=== PATIENT | male | born 1965 | race Caucasian/White ===

== ENCOUNTER 2016-11-13 16:42 | Emergency (ER) | payer OTHER ==
[2016-11-13 18:16] LABS: Hematocrit 38 % (42-52); Hemoglobin 12.7 g/dl (14.0-18.0); Mean Corpuscular HGB Conc 34 g/dl (31-36); Mean Corpuscular Hemoglobin 27 pg (27-31); Mean Corpuscular Volume 81 fL (80-94); Mean Platelet Volume 9 um3 (7.4-10.4); Red Blood Count 4.67 10^6/ul (4.0-5.4); Red Cell Distribution Width 15 % (10.5-15); White Blood Count 8.1 10^3/ul (3.5-10.8)
[2016-11-13 18:24] LABS: Urine Bacteria Absent (Absent); Urine Bilirubin Negative (Negative); Urine Glucose 3+(>=500 mg/dL) (Negative); Urine Nitrite Negative (Negative)
[2016-11-13 18:30] LABS: Albumin 2.3 g/dL (3.2-5.2); BUN/Creatinine Ratio 22.6 (8-20); C Reactive Protein 5.83 mg/L (< 5.00); Calcium 8.1 mg/dL (8.6-10.3); EGFR African American 73.5 (>60); EGFR Non-African American 57.1 (>60); Globulin 2.8 g/dL (2-4); Magnesium 2.1 mg/dL (1.9-2.7); Potassium 4.1 mmol/L (3.5-5.0); Total Bilirubin 0.2 mg/dL (0.2-1.0); Total Protein 5.1 g/dL (6.4-8.9)
[2016-11-13 18:32] LABS: Troponin I 0.01 ng/mL (<0.04)
[2016-11-13] MEDS ORDERED: oxyCODONE TAB* 5 MG TAB PO ONE (18:38)
--- NOTE | 2016-11-13 19:00 | RAD ---
INDICATION: Edema. COMPARISON: Comparison is made with a prior chest x-ray study from August 24, 2016. TECHNIQUE: A portable view of the chest was obtained. FINDINGS: Cardiac and mediastinal contours appear to be within normal limits. The lungs are clear. No pleural effusion is seen. IMPRESSION: NO EVIDENCE FOR ACUTE DISEASE.
[2016-11-13 19:07] LABS: TSH (Thyroid Stimulating Horm) 3.4 mcIU/mL (0.34-5.60)
--- NOTE | 2016-11-13 19:14 | RAD ---
INDICATION: Bilateral pedal edema. COMPARISON: Comparison is made with a prior right lower extremity venous duplex study from July 28, 2016. TECHNIQUE: Multiple real-time, color flow and Doppler tracings of both lower extremities were obtained. FINDINGS: The common femoral, femoral, profunda femoral and popliteal veins all demonstrate normal compressibility, augmentation with compression and phasic response with respiration. The posterior tibial and peroneal veins demonstrate normal compressibility and augmentation with compression. There is a Rogers's cyst present posterior to the right knee measuring 4.9 x 1.9 x 2.8 cm which is complex. There is bilateral calf edema. IMPRESSION: 1. NO EVIDENCE FOR DEEP VENOUS THROMBOSIS. 2. RIGHT LOWER EXTREMITY ROGERS'S CYST.
--- NOTE | 2016-11-13 21:30 | ED ---
ISean Soohyun, scribed for Sohail Mabry MD on 11/13/16 at 1742 . Complex/Multi-Sys Presentation - HPI Summary HPI Summary: This 51 y/o male presents to ED for acute on chronic diffuse edema throughout BLE, penis, scrotum, and lower abd. Pt reports abd discomfort. [facility] He also complaints of exertional SOB. The swelling has been gradually increasing to BLE upto lower abd since then. Pt states that he is currently on lisinopril and hydrochlorothiazide. Pt also states vague statement that he has seen his PCP. PMHx includes HTN, DM, and diabetic neuropathy at [facility]. - History Of Current Complaint Chief Complaint: EDGeneral Time Seen by Provider: 11/13/16 17:22 Hx Obtained From: Patient, Medical Records Onset/Duration: Gradual Onset, Lasting Weeks, Still Present Timing: Constant Severity Currently: Mild Severity Initially: Moderate Associated Signs And Symptoms: Positive: SOB - exertional - Allergies/Home Medications Allergies/Adverse Reactions: Allergies Allergy/AdvReac Type Severity Reaction Status Date / Time No Known Allergies Allergy Verified 04/24/16 15:02 PMH/Surg Hx/FS Hx/Imm Hx Endocrine/Hematology History: Reports: Hx Diabetes - NOT WELL CONTROLLED Denies: Hx Sickle Cell Disease Cardiovascular History: Reports: Hx Hypercholesterolemia, Hx Hypertension, Hx Peripheral Vascular Disease Denies: Hx Congestive Heart Failure, Hx Pacemaker/ICD Respiratory History: Reports: Hx Sleep Apnea Denies: Hx Asthma, Other Respiratory Problems/Disorders GI History: Reports: Hx Gastroesophageal Reflux Disease - Takes Prilosec History: Denies: Hx Dialysis, Hx Renal Disease, Other Problems/Disorders Musculoskeletal History: Reports: Hx Arthritis - KNEES AND ANKLES, RIGHT HAND Denies: Other Musculoskeletal History Sensory History: Reports: Hx Contacts or Glasses - GLASSES Denies: Hx Hearing Aid Opthamlomology History: Reports: Hx Contacts or Glasses - GLASSES Neurological History: Reports: Hx Nerve Disease - Diabetic neuropathy bilat legs /feet, Other Neuro Impairments/Disorders - diabetic neuropathy bilat legs Psychiatric History: Reports: Hx Anxiety, Hx Depression Denies: Hx Panic Disorder - Surgical History Surgery Procedure, Year, and Place: LEFT ANKLE SURGERY 1994 [place]. RT CALF - INFECTION - I & D - 2004 [place]. APPENDECTOMY 2009 [facility] [place]. Left foot surgery FOR ULCER ( REMOVED BONE) [facility] [place] 2012. RIGHT HAND I+D 09/2013 [facility] [place] Hx Anesthesia Reactions: No Infectious Disease History: Yes Infectious Disease History: Reports: Hx of Known/Suspected MRSA - in bilat feet Denies: Traveled Outside the US in Last 30 Days - Family History Known Family History: Positive: Diabetes - Social History Alcohol Use: None Alcohol Amount: A COUPLE BEERS ONCE IN AWHILE Substance Use Type: Reports: None Substance Use Comment - Amount & Last Used: OCCASIONAL Smoking Status (MU): Heavy Every Day Tobacco Smoker Type: Cigarettes Amount Used/How Often: 1 PPD Length of Time of Smoking/Using Tobacco: 30 YRS Have You Smoked in the Last Year: Yes Review of Systems Negative: Fever Positive: Shortness Of Breath - exertional Positive: Edema - BLE, penis, and lower abd Negative: Anxious, Depressed All Other Systems Reviewed And Are Negative: Yes Physical Exam Triage Information Reviewed: Yes Vital Signs On Initial Exam: Initial Vitals Temp Pulse Resp BP Pulse Ox 97.7 F 80 16 164/99 99 11/13/16 16:47 11/13/16 16:47 11/13/16 16:47 11/13/16 16:47 11/13/16 16:47 Vital Signs Reviewed: Yes Appearance: Positive: Well-Appearing, No Pain Distress, Obese Skin: Positive: Warm, Dry Head/Face: Positive: Normal Head/Face Inspection Eyes: Positive: EOMI, UMA Neck: Positive: Supple, Nontender Respiratory/Lung Sounds: Positive: Breath Sounds Present Cardiovascular: Positive: RRR, Pulses are Symmetrical in both Upper and Lower Extremities Abdomen Description: Positive: Other: - lower abd edematous Male Genital Exam: Positive: other - edematous scrotum bilat and lower abd Musculoskeletal: Positive: Strength/ROM Intact, Edema Left - 4+, Edema Right - 4 + pitting edema Neurological: Positive: Sensory/Motor Intact, Alert, Oriented to Person Place, Time Psychiatric: Positive: Affect/Mood Appropriate AVPU Assessment: Alert - Gilman Coma Scale Coma Scale Total: 15 Diagnostics - Vital Signs Vital Signs Temp Pulse Resp BP Pulse Ox 11/13/16 17:00 82 16 100 11/13/16 16:56 81 99 11/13/16 16:55 172/89 11/13/16 16:47 97.7 F 80 16 164/99 99 - Laboratory Lab Results: Lab Results 11/13/16 11/13/16 11/13/16 Range/Units 18:00 18:00 18:00 WBC 8.1 (3.5-10.8) 10^3/ul RBC 4.67 (4.0-5.4) 10^6/ul Hgb 12.7 L (14.0-18.0) g/dl Hct 38 L (42-52) % MCV 81 (80-94) fL MCH 27 (27-31) pg MCHC 34 (31-36) g/dl RDW 15 (10.5-15) % Plt Count 280 (150-450) 10^3/ul MPV 9 (7.4-10.4) um3 Neut % (Auto) 54.1 (38-83) % Lymph % (Auto) 31.8 (25-47) % [place] % (Auto) 9.3 H (1-9) % Eos % (Auto) 3.5 (0-6) % Baso % (Auto) 1.3 (0-2) % Absolute Neuts (auto) 4.4 (1.5-7.7) 10^3/ul Absolute Lymphs (auto) 2.6 (1.0-4.8) 10^3/ul Absolute Monos (auto) 0.8 (0-0.8) 10^3/ul Absolute Eos (auto) 0.3 (0-0.6) 10^3/ul Absolute Basos (auto) 0.1 (0-0.2) 10^3/ul Absolute Nucleated RBC 0 10^3/ul Nucleated RBC % 0 INR (Anticoag Therapy) 0.81 L (0.89-1.11) APTT 32.7 (26.0-36.3) seconds Sodium (133-145) mmol/L Potassium (3.5-5.0) mmol/L Chloride (101-111) mmol/L Carbon Dioxide (22-32) mmol/L Anion Gap (2-11) mmol/L BUN (6-24) mg/dL Creatinine (0.67-1.17) mg/dL Est GFR ( Amer) (>60) Est GFR (Non-Af Amer) (>60) BUN/Creatinine Ratio (8-20) Glucose (70-100) mg/dL Lactic Acid (0.5-2.0) mmol/L Calcium (8.6-10.3) mg/dL Magnesium (1.9-2.7) mg/dL Total Bilirubin (0.2-1.0) mg/dL AST (13-39) U/L ALT (7-52) U/L Alkaline Phosphatase (34-104) U/L Total Creatine Kinase (10-223) U/L CK-MB (CK-2) (0.6-6.3) ng/mL Troponin I (<0.04) ng/mL C-Reactive Protein (< 5.00) mg/L B-Natriuretic Peptide ( - 100) pg/mL Total Protein (6.4-8.9) g/dL Albumin (3.2-5.2) g/dL Globulin (2-4) g/dL Albumin/Globulin Ratio (1-3) Lipase (11.0-82.0) U/L TSH (0.34-5.60) mcIU/mL Urine Color Yellow Urine Appearance Clear Urine pH 6.0 (5-9) Ur Specific [place] 1.020 (1.010-1.030) Urine Protein 3+(>=500 mg/dl) H (Negative) Urine Ketones Negative (Negative) Urine Blood 1+ H (Negative) Urine Nitrate Negative (Negative) Urine Bilirubin Negative (Negative) Urine Urobilinogen Negative (Negative) Ur Leukocyte Esterase Negative (Negative) Urine WBC (Auto) Trace(0-5/hpf) (Absent) Urine RBC (Auto) 1+(3-5/hpf) H (Absent) Ur Squamous Epith Cells Present H (Absent) Urine Bacteria Absent (Absent) Urine Glucose 3+(>=500 mg/dl) H (Negative) 11/13/16 11/13/16 11/13/16 Range/Units 18:00 18:00 18:00 WBC (3.5-10.8) 10^3/ul RBC (4.0-5.4) 10^6/ul Hgb (14.0-18.0) g/dl Hct (42-52) % MCV (80-94) fL MCH (27-31) pg MCHC (31-36) g/dl RDW (10.5-15) % Plt Count (150-450) 10^3/ul MPV (7.4-10.4) um3 Neut % (Auto) (38-83) % Lymph % (Auto) (25-47) % [place] % (Auto) (1-9) % Eos % (Auto) (0-6) % Baso % (Auto) (0-2) % Absolute Neuts (auto) (1.5-7.7) 10^3/ul Absolute Lymphs (auto) (1.0-4.8) 10^3/ul Absolute Monos (auto) (0-0.8) 10^3/ul Absolute Eos (auto) (0-0.6) 10^3/ul Absolute Basos (auto) (0-0.2) 10^3/ul Absolute Nucleated RBC 10^3/ul Nucleated RBC % INR (Anticoag Therapy) (0.89-1.11) APTT (26.0-36.3) seconds Sodium 135 (133-145) mmol/L Potassium 4.1 (3.5-5.0) mmol/L Chloride 110 (101-111) mmol/L Carbon Dioxide 23 (22-32) mmol/L Anion Gap 2 (2-11) mmol/L BUN 30 H (6-24) mg/dL Creatinine 1.33 H (0.67-1.17) mg/dL Est GFR ( Amer) 73.5 (>60) Est GFR (Non-Af Amer) 57.1 (>60) BUN/Creatinine Ratio 22.6 H (8-20) Glucose 124 H (70-100) mg/dL Lactic Acid 0.8 (0.5-2.0) mmol/L Calcium 8.1 L (8.6-10.3) mg/dL Magnesium 2.1 (1.9-2.7) mg/dL Total Bilirubin 0.20 (0.2-1.0) mg/dL AST 48 H (13-39) U/L ALT 35 (7-52) U/L Alkaline Phosphatase 128 H (34-104) U/L Total Creatine Kinase 1288 H (10-223) U/L CK-MB (CK-2) 16.8 H (0.6-6.3) ng/mL Troponin I 0.01 (<0.04) ng/mL C-Reactive Protein 5.83 H (< 5.00) mg/L B-Natriuretic Peptide 54 ( - 100) pg/mL Total Protein 5.1 L (6.4-8.9) g/dL Albumin 2.3 L (3.2-5.2) g/dL Globulin 2.8 (2-4) g/dL Albumin/Globulin Ratio 0.8 L (1-3) Lipase 25 (11.0-82.0) U/L TSH 3.40 (0.34-5.60) mcIU/mL Urine Color Urine Appearance Urine pH (5-9) Ur Specific [place] (1.010-1.030) Urine Protein (Negative) Urine Ketones (Negative) Urine Blood (Negative) Urine Nitrate (Negative) Urine Bilirubin (Negative) Urine Urobilinogen (Negative) Ur Leukocyte Esterase (Negative) Urine WBC (Auto) (Absent) Urine RBC (Auto) (Absent) Ur Squamous Epith Cells (Absent) Urine Bacteria (Absent) Urine Glucose (Negative) Result Diagrams: 11/13/16 18:00 11/13/16 18:00 Lab Statement: Any lab studies that have been ordered have been reviewed, and results considered in the medical decision making process. - Radiology CXR Xray Interpretation: No Acute Changes Radiology Interpretation Completed By: Radiologist - EKG 1811 EKG Rhythm: Atrial Flutter - at 73 bpm with 4:1 AV block - Additional Comments Diagnostic Additional Comments: US Venous Doppler Study -- 1. NO EVIDENCE FOR DEEP VENOUS THROMBOSIS. 2. RIGHT LOWER EXTREMITY DIAZ'S CYST. Complex Multi-Symp Course/Dx Assessment/Plan: DISCUSSED WITH DR PHILLIPS. NO ECHOCARDIOGRAM ON FILE. BNP AND CXR DID NOT SHOW SIGNS OF CHF. PATIENT REPORTS HE HAS BEEN ON 2 DIFFERENT DIURETICS WHICH HAVE NOT HELPED. CT OF ABD/PELVIS PENDING AT SHIFT CHANGE TO ENSURE NO MASS/VENOUS CAUSE FOR THE EDEMA IN THE ABDOMEN/PELVIS. STABLE IN ED. - Diagnoses Provider Diagnoses: Edema - Physician Notifications Discussed Care Of Patient With: Dr. Phillips (Hospitalist) at 1958 PM Discharge - Discharge Plan Condition: Stable Disposition: HOME Patient Education Materials: Edema (ED) Referrals: Lukas SEALS,Juan Saab [Primary Care Provider] - Additional Instructions: FOLLOW UP WITH YOUR DOCTOR. TO DETERMINE THE CAUSE OF YOUR EDEMA, A CARDIAC ECHOCARDIOGRAM IS NEEDED TO DETERMINE IF YOUR HEART HAS AN ADEQUATE EJECTION FRACTION. IF THE ECHOCARDIOGRAM IS ABNORMAL, YOU MAY NEED TO SEE A TUBER MACHINE CUTTER. IF THE ECHOCARDIOGRAM IS NORMAL, THEN YOU WILL NEED TO SEE A VENOUS SPECIALIST, A VASCULAR SURGEON. RETURN TO THE EMERGENCY DEPARTMENT FOR ANY WORSENING OF YOUR CONDITION; CHEST PAIN, SHORTNESS OF BREATH, YOU FEEL ILL OR QUESTIONS OR CONCERNS. The documentation as recorded by the Sean diaz Soohyun accurately reflects the service I personally performed and the decisions made by me, Sohail Mabry MD.
[2016-11-13 23:44] VITALS: BP 162/94
[2016-11-14] MEDS ORDERED: Iodixanol* (CONTRAST) 320 MG/ML 100 ML SDV IV ONE (00:05)
--- NOTE | 2016-11-14 00:36 | ED ---
tracee Dave Timothy, nancie for Adam Boles on 11/13/16 at 2318 . Progress - Progress Note Progress Note: Oscar Felton is a 51 yo male presenting to [facility] with diffuse bilateral edema. His MHx includes peripheral vacular disease, HLD, HTN, diabetic neuropathy bilaterally in legs and feet, GERD, DM, depression, anxiety, MRSA bilaterally in his feet. He is a sign out from Dr. Mabry. Course/Dx - Course Course Of Treatment: Oscar Felton is a 51 yo male presenting to [facility] with diffuse bilateral edema. Pt left AMA at 0000 11/15/15. - Diagnoses Provider Diagnoses: Edema, Pedal edema - Provider Notifications Discussed Care Of Patient With: Dr. Phillips (Hospitalist) at 1958 PM The documentation as recorded by the markellibetracee Timothy accurately reflects the service I personally performed and the decisions made by , Adam Boles.
== END 2016-11-13 23:48 | disposition home or self-care (01) ==
LOC: ED 16:42
DX: M71.21 Synovial cyst of popliteal space [Baker], right knee (principal); R60.9 Edema, unspecified; R06.02 Shortness of breath; F17.210 Nicotine dependence, cigarettes, uncomplicated
CPT/HCPCS: 36415; 71010; 80053; 81003; 81015; 82550; 82553; 83605; 83690; 83735; 83880; 84443; 84484; 85025; 85610; 85730; 86140; 93005; 93970; 99283; A9270-GY

== ENCOUNTER 2016-12-11 19:04 | Inpatient (IN) | payer OTHER ==
--- NOTE | 2016-12-11 19:43 | RAD ---
INDICATION: Shortness of breath. COMPARISON: Comparison is made with a prior chest x-ray study from November 13, 2016. TECHNIQUE: Dual-energy PA and lateral views of the chest were obtained. FINDINGS: The heart is within normal limits in size. Mediastinal and hilar contours appear within normal limits. The lungs are underinflated. There is mild prominence of the interstitial markings which is unchanged. No focal infiltrate is seen. There is flattening of the diaphragms suggestive of chronic obstructive pulmonary disease. No pleural effusion is seen. IMPRESSION: FINDINGS SUGGESTIVE OF COPD, NO EVIDENCE FOR ACUTE FINDING.
[2016-12-11 20:29] LABS: Hematocrit 32 % (42-52); Hemoglobin 10.6 g/dl (14.0-18.0); Mean Corpuscular HGB Conc 33 g/dl (31-36); Mean Corpuscular Hemoglobin 27 pg (27-31); Mean Corpuscular Volume 81 fL (80-94); Mean Platelet Volume 9 um3 (7.4-10.4); Red Blood Count 3.98 10^6/ul (4.0-5.4); Red Cell Distribution Width 15 % (10.5-15); White Blood Count 7.8 10^3/ul (3.5-10.8)
[2016-12-11 20:43] LABS: ALT 18 U/L (7-52); AST 20 U/L (13-39); Albumin 2.1 g/dL (3.2-5.2); Alkaline Phosphatase 158 U/L (34-104); Anion Gap 5 mmol/L (2-11); BUN/Creatinine Ratio 16.6 (8-20); Blood Urea Nitrogen 26 mg/dL (6-24); CO2 Carbon Dioxide 28 mmol/L (22-32); Calcium 7.5 mg/dL (8.6-10.3); Chloride 109 mmol/L (101-111); EGFR African American 60.7 (>60); EGFR Non-African American 47.2 (>60); Globulin 2.6 g/dL (2-4); Glucose 218 mg/dL (70-100); Potassium 3.9 mmol/L (3.5-5.0); Sodium 142 mmol/L (133-145); Total Protein 4.7 g/dL (6.4-8.9)
[2016-12-11 20:44] LABS: Troponin I 0.01 ng/mL (<0.04)
[2016-12-11] MEDS ORDERED: HYDROmorphone* 1 MG/ML 1 ML SYR IV ONE (21:56)
--- NOTE | 2016-12-11 22:24 | ED ---
Jolie, DoctorSteffany, scribed for Irene Branham MD on 12/11/16 at 1932 . Lower Extremity - HPI Summary HPI Summary: 51 year old male brought to [facility] by EMS with SOB, chills, and bilateral lower extremity edema. He reports swelling and redness all the way up his legs to the lower back, that has been steadily increasing since 07/2016. He also reports gaining approximately 100 lbs since that time. He has PMHx and FHx of DM; pt is a heavy every day smoker. - History of Current Complaint Chief Complaint: EDShortnessOfBreath Stated Complaint: SHORT OF BREATH Hx Obtained From: Patient, EMS Onset of Pain: Days Onset/Duration: Still Present Pain Intensity: 9 Pain Scale Used: 0-10 Numeric Timing: Constant Associated Signs And Symptoms: Positive: Swelling, Redness, Other - chills, SOB Able to Bear Weight: Yes - Allergies/Home Medications Allergies/Adverse Reactions: Allergies Allergy/AdvReac Type Severity Reaction Status Date / Time No Known Allergies Allergy Verified 04/24/16 15:02 PMH/Surg Hx/FS Hx/Imm Hx Endocrine/Hematology History: Reports: Hx Diabetes - NOT WELL CONTROLLED Denies: Hx Sickle Cell Disease Cardiovascular History: Reports: Hx Hypercholesterolemia, Hx Hypertension, Hx Peripheral Vascular Disease Denies: Hx Congestive Heart Failure, Hx Pacemaker/ICD Respiratory History: Reports: Hx Sleep Apnea Denies: Hx Asthma, Other Respiratory Problems/Disorders GI History: Reports: Hx Gastroesophageal Reflux Disease - Takes Prilosec History: Denies: Hx Dialysis, Hx Renal Disease, Other Problems/Disorders Musculoskeletal History: Reports: Hx Arthritis - KNEES AND ANKLES, RIGHT HAND Denies: Other Musculoskeletal History Sensory History: Reports: Hx Contacts or Glasses - GLASSES Denies: Hx Hearing Aid Opthamlomology History: Reports: Hx Contacts or Glasses - GLASSES Neurological History: Reports: Hx Nerve Disease - Diabetic neuropathy bilat legs /feet, Other Neuro Impairments/Disorders - diabetic neuropathy bilat legs Psychiatric History: Reports: Hx Anxiety, Hx Depression Denies: Hx Panic Disorder - Surgical History Surgery Procedure, Year, and Place: LEFT ANKLE SURGERY 1994 [place]. RT CALF - INFECTION - I & D - 2004 [place]. [place]OM[place] 2009 [facility] [place]. Left foot surgery FOR ULCER ( REMOVED BONE) [facility] [place]. RIGHT HAND I+D 09/2013 [facility] [place] Hx Anesthesia Reactions: No Infectious Disease History: Reports: Hx of Known/Suspected MRSA - in bilat feet Denies: Traveled Outside the [place] in Last 30 Days - Family History Known Family History: Positive: Diabetes - Social History Lives: With Family Alcohol Use: None Alcohol Amount: A COUPLE BEERS ONCE IN AWHILE Substance Use Type: Reports: None Substance Use Comment - Amount & Last Used: OCCASIONAL Smoking Status (MU): Heavy Every Day Tobacco Smoker Type: Cigarettes Amount Used/How Often: 1 PPD Length of Time of Smoking/Using Tobacco: 30 YRS Have You Smoked in the Last Year: Yes Review of Systems Positive: Chills. Negative: Fever Positive: Shortness Of Breath Positive: Edema - bilateral lower extremity & lower back edema Positive: Other - bilateral lower extremity & lower back erythema All Other Systems Reviewed And Are Negative: Yes Physical Exam Triage Information Reviewed: Yes Vital Signs On Initial Exam: Initial Vitals Temp Pulse Resp BP Pulse Ox 98.8 F 89 20 150/79 95 12/11/16 19:18 12/11/16 19:18 12/11/16 19:18 12/11/16 19:18 12/11/16 19:18 Vital Signs Reviewed: Yes Appearance: Positive: Well-Appearing, No Pain Distress Skin: Positive: Warm, Dry, Other - erythema (bilateral lower extremities and lower back) Eyes: Positive: EOMI, UMA ENT: Positive: Pharynx normal, TMs normal Neck: Positive: Supple, Nontender Respiratory/Lung Sounds: Positive: Clear to Auscultation, Breath Sounds Present. Negative: Rales, Rhonchi, Wheezes Cardiovascular: Positive: RRR, Leg Edema Left - 3+ edema up to lower back, Leg Edema Right - 3+ edema up to lower back. Negative: Murmur, Rub Abdomen Description: Positive: Nontender, Soft. Negative: Distended, Guarding Musculoskeletal: Positive: Strength/ROM Intact, Edema Left, Edema Right Neurological: Positive: Sensory/Motor Intact, Alert, Oriented to Person Place, Time, CN Intact II-III Psychiatric: Positive: Affect/Mood Appropriate Diagnostics - Vital Signs Vital Signs Temp Pulse Resp BP Pulse Ox 12/11/16 19:21 98.8 F 91 20 150/79 97 12/11/16 19:18 98.8 F 89 20 150/79 95 - Laboratory Lab Results: Lab Results 12/11/16 12/11/16 12/11/16 Range/Units 20:16 20:16 20:16 WBC 7.8 (3.5-10.8) 10^3/ul RBC 3.98 L (4.0-5.4) 10^6/ul Hgb 10.6 L (14.0-18.0) g/dl Hct 32 L (42-52) % MCV 81 (80-94) fL MCH 27 (27-31) pg MCHC 33 (31-36) g/dl RDW 15 (10.5-15) % Plt Count 251 (150-450) 10^3/ul MPV 9 (7.4-10.4) um3 Neut % (Auto) 55.8 (38-83) % Lymph % (Auto) 29.6 (25-47) % [place] % (Auto) 9.9 H (1-9) % Eos % (Auto) 3.3 (0-6) % Baso % (Auto) 1.4 (0-2) % Absolute Neuts (auto) 4.3 (1.5-7.7) 10^3/ul Absolute Lymphs (auto) 2.3 (1.0-4.8) 10^3/ul Absolute Monos (auto) 0.8 (0-0.8) 10^3/ul Absolute Eos (auto) 0.3 (0-0.6) 10^3/ul Absolute Basos (auto) 0.1 (0-0.2) 10^3/ul Absolute Nucleated RBC 0 10^3/ul Nucleated RBC % 0 Sodium 142 (133-145) mmol/L Potassium 3.9 (3.5-5.0) mmol/L Chloride 109 (101-111) mmol/L Carbon Dioxide 28 (22-32) mmol/L Anion Gap 5 (2-11) mmol/L BUN 26 H (6-24) mg/dL Creatinine 1.57 H (0.67-1.17) mg/dL Est GFR ( Amer) 60.7 (>60) Est GFR (Non-Af Amer) 47.2 (>60) BUN/Creatinine Ratio 16.6 (8-20) Glucose 218 H (70-100) mg/dL Lactic Acid 0.9 (0.5-2.0) mmol/L Calcium 7.5 L (8.6-10.3) mg/dL Total Bilirubin 0.20 (0.2-1.0) mg/dL AST 20 (13-39) U/L ALT 18 (7-52) U/L Alkaline Phosphatase 158 H (34-104) U/L Troponin I 0.01 (<0.04) ng/mL B-Natriuretic Peptide ( - 100) pg/mL Total Protein 4.7 L (6.4-8.9) g/dL Albumin 2.1 L (3.2-5.2) g/dL Globulin 2.6 (2-4) g/dL Albumin/Globulin Ratio 0.8 L (1-3) 12/11/16 Range/Units 20:16 WBC (3.5-10.8) 10^3/ul RBC (4.0-5.4) 10^6/ul Hgb (14.0-18.0) g/dl Hct (42-52) % MCV (80-94) fL MCH (27-31) pg MCHC (31-36) g/dl RDW (10.5-15) % Plt Count (150-450) 10^3/ul MPV (7.4-10.4) um3 Neut % (Auto) (38-83) % Lymph % (Auto) (25-47) % [place] % (Auto) (1-9) % Eos % (Auto) (0-6) % Baso % (Auto) (0-2) % Absolute Neuts (auto) (1.5-7.7) 10^3/ul Absolute Lymphs (auto) (1.0-4.8) 10^3/ul Absolute Monos (auto) (0-0.8) 10^3/ul Absolute Eos (auto) (0-0.6) 10^3/ul Absolute Basos (auto) (0-0.2) 10^3/ul Absolute Nucleated RBC 10^3/ul Nucleated RBC % Sodium (133-145) mmol/L Potassium (3.5-5.0) mmol/L Chloride (101-111) mmol/L Carbon Dioxide (22-32) mmol/L Anion Gap (2-11) mmol/L BUN (6-24) mg/dL Creatinine (0.67-1.17) mg/dL Est GFR ( Amer) (>60) Est GFR (Non-Af Amer) (>60) BUN/Creatinine Ratio (8-20) Glucose (70-100) mg/dL Lactic Acid (0.5-2.0) mmol/L Calcium (8.6-10.3) mg/dL Total Bilirubin (0.2-1.0) mg/dL AST (13-39) U/L ALT (7-52) U/L Alkaline Phosphatase (34-104) U/L Troponin I (<0.04) ng/mL B-Natriuretic Peptide 78 ( - 100) pg/mL Total Protein (6.4-8.9) g/dL Albumin (3.2-5.2) g/dL Globulin (2-4) g/dL Albumin/Globulin Ratio (1-3) Result Diagrams: 12/11/16 20:16 12/11/16 20:16 Lab Statement: Any lab studies that have been ordered have been reviewed, and results considered in the medical decision making process. - Radiology CXR Radiology Interpretation Completed By: Radiologist - IMPRESSION: FINDINGS SUGGESTIVE OF COPD, NO EVIDENCE FOR ACUTE FINDING. - EKG 19:39 Cardiac Rate: NL - 90 bpm EKG Rhythm: Sinus Rhythm Ectopy: None EKG Interpretation: no Qs, no ST Elevation EKG Comparison: No Significant Change - from EKG taken on 11/13/2016 Re-Evaluation - Re-Evaluation First Eval Re-Evaluation Time: 21:32 Change: Unchanged Comment: Discussed results of labs and potential treatment options with pt Lower Extremity Course/Dx - Course Course Of Treatment: 51 yo male with 5 months of anasarca come to the ED with increased fluid over abdominal wall. Pt is awaiting a consult by the hospitalists. Of note his genitalia are swollen with erythema but he has no signs of infection. We are currently awaiting a urine for the hospitalist to look at a random urine protein and creatinine - Diagnoses Provider Diagnoses: Anasarca Discharge - Discharge Plan Condition: Stable Disposition: OTHER Discharge Disposition Comment: signed out to Dr. randolph The documentation as recorded by the Doctor diaz Tahera accurately reflects the service I personally performed and the decisions made by me, Irene Branham MD.
[2016-12-12 01:15] LABS: Alcohol < 10 mg/dL (<10)
[2016-12-12 01:16] LABS: Benzodiazepine Urine Screen None Detected (None Detect)
[2016-12-12 01:41] LABS: Free T4 0.88 ng/dL (0.61-1.12)
[2016-12-12] MEDS ORDERED: oxyCODONE/Acetamin 5/325 MG* TAB PO ONE (07:29)
--- NOTE | 2016-12-12 07:39 | CONSULT ---
Consult Consult: PCP: Sol Gaytan MD Date/Time of Evaluation: 12/11/2016 2330 CC: swelling BLE into the low back HPI: Mr Felton is a 51YO obese male HX DM2, HLD, & GERD who reports onset of worsening BLE edema extending into the low back & B testes starting in Jul 2016. He has seen his PCP who referred him to cardiology & urology. This has been associated with progressive fatigue and some SOB, but he denies chest pain , N/V, palpitations, HX CAD/SD, light-headedness, or other issues. Labs are notable for a BNP in the 70s, albumin 2.1. ECG is benign. CXR consistent w/ COPD, otherwise negative. Vitals are stable, hypertensive w/ RA saO2s in the mid-90s. Consult was requested for admission for failed outpatient management. PMedHx DM2 HLD CKD stg 3a chronic normocystic anemia gout GERD Allergies No Known Allergies Allergy (Verified 04/24/16 15:02) Ambulatory Orders Insulin Glargine [Lantus] 50 unit SC BID 05/27/13 Metformin HCl 1,000 mg PO BID 05/27/13 Glimepiride 4 mg PO BID 09/03/13 Atorvastatin* [Lipitor*] 80 mg PO QAM 09/02/15 Pantoprazole TAB (NF) [Protonix TAB (NF)] 40 mg PO QAM 09/02/15 Zolpidem TAB* [Ambien TAB*] 10 mg PO BEDTIME PRN 03/27/16 Aspirin TAB* [Aspirin 325 MG TAB*] 325 mg PO BEDTIME 30 Days 04/03/16 Docusate CAP* [Colace Cap*] 100 mg PO BID #60 cap 04/03/16 oxyCODONE TAB* [Roxycodone TAB 5 mg*] 15 mg PO Q6HR MDD 6 08/24/16 SocHx: 1PPD cigarettes w/ ~30 PYHX, occasional alcohol, denies recreational drugs; single; full code status FamHx: positive for HTN, HLD, DM2, CAD, & unknown cancer type ROS: as above, otherwise reviewed and all were negative Constitutional: NAD, normally developed, obese white male vitals: Vital Signs Temp 37.1 C 12/11/16 19:21 Pulse 85 12/12/16 01:00 Resp 18 12/12/16 00:30 BP 141/79 12/12/16 01:00 Pulse Ox 94 12/12/16 01:00 Intake & Output 12/11/16 12/11/16 12/12/16 11:59 23:59 11:59 Weight 104.326 kg HEENM: atraumatic; sclera/conjunctiva: non-icteric/clear; hearing: clinically intact; oropharynx: clear, mucosa moist Neck: soft tissue: non-tender; thyroid: normal Pulmonary: clear to auscultation bilaterally, good aeration, no accessory muscle use CV: RR/RR, normal S1S2, no carotid bruit, no jugular venous distention, 2+ B DP/ PT, 2+ BLE edema up to the sacrum Abdominal: soft, non-distended, non-tender, no rebound/guarding/rigidity, normoactive bowel sounds, no hepatosplenomegaly or masses, no costovertebral angle tenderness Musculoskeletal: general: grossly intact; gait: stable Integumental: normal appearance and texture of exposed skin Psychiatric orientation: AA&O to PPS affect: calm mood: cooperative eye contact: fair content: reliable responses: timely insight: fair to poor Testing: Lab Results 12/11/16 12/11/16 12/11/16 Range/Units 20:16 20:16 20:16 WBC 7.8 (3.5-10.8) 10^3/ul RBC 3.98 L (4.0-5.4) 10^6/ul Hgb 10.6 L (14.0-18.0) g/dl Hct 32 L (42-52) % MCV 81 (80-94) fL MCH 27 (27-31) pg MCHC 33 (31-36) g/dl RDW 15 (10.5-15) % Plt Count 251 (150-450) 10^3/ul MPV 9 (7.4-10.4) um3 Neut % (Auto) 55.8 (38-83) % Lymph % (Auto) 29.6 (25-47) % [place] % (Auto) 9.9 H (1-9) % Eos % (Auto) 3.3 (0-6) % Baso % (Auto) 1.4 (0-2) % Absolute Neuts (auto) 4.3 (1.5-7.7) 10^3/ul Absolute Lymphs (auto) 2.3 (1.0-4.8) 10^3/ul Absolute Monos (auto) 0.8 (0-0.8) 10^3/ul Absolute Eos (auto) 0.3 (0-0.6) 10^3/ul Absolute Basos (auto) 0.1 (0-0.2) 10^3/ul Absolute Nucleated RBC 0 10^3/ul Nucleated RBC % 0 Sodium 142 (133-145) mmol/L Potassium 3.9 (3.5-5.0) mmol/L Chloride 109 (101-111) mmol/L Carbon Dioxide 28 (22-32) mmol/L Anion Gap 5 (2-11) mmol/L BUN 26 H (6-24) mg/dL Creatinine 1.57 H (0.67-1.17) mg/dL Est GFR ( Amer) 60.7 (>60) Est GFR (Non-Af Amer) 47.2 (>60) BUN/Creatinine Ratio 16.6 (8-20) Glucose 218 H (70-100) mg/dL Lactic Acid 0.9 (0.5-2.0) mmol/L Calcium 7.5 L (8.6-10.3) mg/dL Total Bilirubin 0.20 (0.2-1.0) mg/dL AST 20 (13-39) U/L ALT 18 (7-52) U/L Alkaline Phosphatase 158 H (34-104) U/L Troponin I 0.01 (<0.04) ng/mL B-Natriuretic Peptide ( - 100) pg/mL Total Protein 4.7 L (6.4-8.9) g/dL Albumin 2.1 L (3.2-5.2) g/dL Globulin 2.6 (2-4) g/dL Albumin/Globulin Ratio 0.8 L (1-3) TSH 3.60 (0.34-5.60) mcIU/mL Free T4 0.88 (0.61-1.12) ng/dL Thyroxine (T4) Cancelled Ur Random Creatinine mg/dL U Random Total Protein mg/dL Urine Opiates Screen (None Detect) Ur Barbiturates Screen (None Detect) Ur Phencyclidine Scrn (None Detect) Ur Amphetamines Screen (None Detect) U Benzodiazepines Scrn (None Detect) Urine Cocaine Screen (None Detect) U Cannabinoids Screen (None Detect) Serum Alcohol < 10 (<10) mg/dL 12/11/16 12/11/16 12/11/16 Range/Units 20:16 22:14 22:14 WBC (3.5-10.8) 10^3/ul RBC (4.0-5.4) 10^6/ul Hgb (14.0-18.0) g/dl Hct (42-52) % MCV (80-94) fL MCH (27-31) pg MCHC (31-36) g/dl RDW (10.5-15) % Plt Count (150-450) 10^3/ul MPV (7.4-10.4) um3 Neut % (Auto) (38-83) % Lymph % (Auto) (25-47) % Owsley % (Auto) (1-9) % Eos % (Auto) (0-6) % Baso % (Auto) (0-2) % Absolute Neuts (auto) (1.5-7.7) 10^3/ul Absolute Lymphs (auto) (1.0-4.8) 10^3/ul Absolute Monos (auto) (0-0.8) 10^3/ul Absolute Eos (auto) (0-0.6) 10^3/ul Absolute Basos (auto) (0-0.2) 10^3/ul Absolute Nucleated RBC 10^3/ul Nucleated RBC % Sodium (133-145) mmol/L Potassium (3.5-5.0) mmol/L Chloride (101-111) mmol/L Carbon Dioxide (22-32) mmol/L Anion Gap (2-11) mmol/L BUN (6-24) mg/dL Creatinine (0.67-1.17) mg/dL Est GFR ( Amer) (>60) Est GFR (Non-Af Amer) (>60) BUN/Creatinine Ratio (8-20) Glucose (70-100) mg/dL Lactic Acid (0.5-2.0) mmol/L Calcium (8.6-10.3) mg/dL Total Bilirubin (0.2-1.0) mg/dL AST (13-39) U/L ALT (7-52) U/L Alkaline Phosphatase (34-104) U/L Troponin I (<0.04) ng/mL B-Natriuretic Peptide 78 ( - 100) pg/mL Total Protein (6.4-8.9) g/dL Albumin (3.2-5.2) g/dL Globulin (2-4) g/dL Albumin/Globulin Ratio (1-3) TSH (0.34-5.60) mcIU/mL Free T4 (0.61-1.12) ng/dL Thyroxine (T4) Ur Random Creatinine 105.31 mg/dL U Random Total Protein 1405 mg/dL Urine Opiates Screen (None Detect) Ur Barbiturates Screen (None Detect) Ur Phencyclidine Scrn (None Detect) Ur Amphetamines Screen (None Detect) U Benzodiazepines Scrn (None Detect) Urine Cocaine Screen (None Detect) U Cannabinoids Screen (None Detect) Serum Alcohol (<10) mg/dL 12/11/16 Range/Units 22:14 WBC (3.5-10.8) 10^3/ul RBC (4.0-5.4) 10^6/ul Hgb (14.0-18.0) g/dl Hct (42-52) % MCV (80-94) fL MCH (27-31) pg MCHC (31-36) g/dl RDW (10.5-15) % Plt Count (150-450) 10^3/ul MPV (7.4-10.4) um3 Neut % (Auto) (38-83) % Lymph % (Auto) (25-47) % [place] % (Auto) (1-9) % Eos % (Auto) (0-6) % Baso % (Auto) (0-2) % Absolute Neuts (auto) (1.5-7.7) 10^3/ul Absolute Lymphs (auto) (1.0-4.8) 10^3/ul Absolute Monos (auto) (0-0.8) 10^3/ul Absolute Eos (auto) (0-0.6) 10^3/ul Absolute Basos (auto) (0-0.2) 10^3/ul Absolute Nucleated RBC 10^3/ul Nucleated RBC % Sodium (133-145) mmol/L Potassium (3.5-5.0) mmol/L Chloride (101-111) mmol/L Carbon Dioxide (22-32) mmol/L Anion Gap (2-11) mmol/L BUN (6-24) mg/dL Creatinine (0.67-1.17) mg/dL Est GFR ( Amer) (>60) Est GFR (Non-Af Amer) (>60) BUN/Creatinine Ratio (8-20) Glucose (70-100) mg/dL Lactic Acid (0.5-2.0) mmol/L Calcium (8.6-10.3) mg/dL Total Bilirubin (0.2-1.0) mg/dL AST (13-39) U/L ALT (7-52) U/L Alkaline Phosphatase (34-104) U/L Troponin I (<0.04) ng/mL B-Natriuretic Peptide ( - 100) pg/mL Total Protein (6.4-8.9) g/dL Albumin (3.2-5.2) g/dL Globulin (2-4) g/dL Albumin/Globulin Ratio (1-3) TSH (0.34-5.60) mcIU/mL Free T4 (0.61-1.12) ng/dL Thyroxine (T4) Ur Random Creatinine mg/dL U Random Total Protein mg/dL Urine Opiates Screen None detected (None Detect) Ur Barbiturates Screen None detected (None Detect) Ur Phencyclidine Scrn None detected (None Detect) Ur Amphetamines Screen None detected (None Detect) U Benzodiazepines Scrn None detected (None Detect) Urine Cocaine Screen None detected (None Detect) U Cannabinoids Screen Presumptive positive H (None Detect) Serum Alcohol (<10) mg/dL ECG, personally reviewed: NSR rate 90, no ischemia CXR, personally reviewed: IMPRESSION: FINDINGS SUGGESTIVE OF COPD, NO EVIDENCE FOR ACUTE FINDING. Impression: 51M presenting with chronic anasarcous edema in setting of uncontrolled DM2 and worsening renal function. A random urine protein/ [place] ~88697, highly suspicious for nephrotic syndrome. Mr Felton was advised of this and that he should follow up with his PCP and request referral to nephrology for further evaluation and consideration for treatment. He was advised that it would take a good deal of time to improve his swelling, weeks to months, and that he would have to adhere to a strict <2g Na+ diet and obtain good control of his diabetes. The plan was then to discharge home, however, his girlfriend then approached the nurse reporting he was making suicidal statements about shooting himself and that he has a gun at home. Sana Bermudez MD ED was apprised of the situation and re-accepted for mental health evaluation.
[2016-12-12] MEDS ORDERED: Nicotine Inhaler* 10 MG AMP INH PRN (09:10)
[2016-12-12] MEDS ORDERED: Morphine INJ* 4 MG/ML 1 ML SYRINGE IV ONE (09:15)
[2016-12-12] MEDS ORDERED: Ondansetron INJ* 2 MG/ML VIAL IV ONE (09:15)
--- NOTE | 2016-12-12 09:52 | ED ---
Progress - Progress Note Progress Note: 4850 a.m. i signed an involuntary paper work for the patient to be admitted to the behavioral health unit. pt is depressed with suicide ideation secondary to chronic medical conditions-anasarca and diabetes. diagnosis is suicide ideation and depression. condition stable. pt to be admitted to the U. Course/Dx - Diagnoses Provider Diagnoses: Depression
[2016-12-12] MEDS ORDERED: Morphine INJ* 4 MG/ML 1 ML SYRINGE IM ONE (10:06)
--- NOTE | 2016-12-12 10:49 | ED ---
I, Bean Araujo, scribed for Manoj Aponte MD on 12/12/16 at 0753 . Progress - Progress Note Progress Note: This patient was signed out to me by Dr. Bermudez at 07:00. Apparently the pt came in with nephrotic syndrome and made a comment indicating SI. 07:30 - The pt denies any SI at this time and he states that he does not remember saying he wanted to kill himself. He c/o pain in his testicles. Patient in the Flex unit. He requested pain medication. He has chronic testicular pain. He was given 4 mg of Morphin IM. Re-Evaluation - Re-Evaluation First Eval Re-Evaluation Time: 21:32 Change: Unchanged Comment: Discussed results of labs and potential treatment options with pt Course/Dx - Diagnoses Provider Diagnoses: Depression The documentation as recorded by the markellibeVan Adam accurately reflects the service I personally performed and the decisions made by me, Manoj Aponte MD.
[2016-12-12] MEDS ORDERED: Mouth Piece, Nicotine* 1 EACH CARTRIDGE ONE (13:36)
[2016-12-12] MEDS ORDERED: metFORMIN* 1,000 MG TAB PO SCH (17:00)
[2016-12-12] MEDS: Citalopram TAB* 20 MG PO SCH (18:10)
[2016-12-12] MEDS: oxyCODONE TAB* 5 MG TAB PO PRN (18:10)
[2016-12-12] MEDS: Gabapentin CAP(*) 400 MG PO SCH (22:39)
[2016-12-12] MEDS: CMCS: Glimepiride (NF) 2 MG TAB PO SCH (22:40)
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
[2016-12-13 07:03] LABS: Hematocrit 33 % (42-52); Hemoglobin 10.7 g/dl (14.0-18.0); Mean Corpuscular HGB Conc 33 g/dl (31-36); Mean Corpuscular Hemoglobin 27 pg (27-31); Mean Corpuscular Volume 82 fL (80-94); Mean Platelet Volume 9 um3 (7.4-10.4); Red Blood Count 3.97 10^6/ul (4.0-5.4); Red Cell Distribution Width 15 % (10.5-15); White Blood Count 6.4 10^3/ul (3.5-10.8)
[2016-12-13 07:25] LABS: BUN/Creatinine Ratio 16.9 (8-20); Calcium 7.8 mg/dL (8.6-10.3); EGFR Non-African American 50.5 (>60); Potassium 4.2 mmol/L (3.5-5.0)
[2016-12-13] MEDS: Bumetanide TAB* 2 MG PO SCH (08:34)
[2016-12-13] MEDS: Citalopram TAB* 20 MG PO SCH (08:35)
[2016-12-13] MEDS: oxyCODONE TAB* 5 MG TAB PO PRN ×3 (08:35→21:00)
[2016-12-13] MEDS: CMCS: Glimepiride (NF) 2 MG TAB PO SCH ×2 (08:35→20:58)
[2016-12-13] MEDS: Omeprazole CAP* 20 MG PO SCH (08:35)
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
--- NOTE | 2016-12-13 12:15 | PN ---
[facility]: Group Therapy Note - Service Type Service Type: [id number] Group Psychotherapy - Cognitive Behavioral Group Therapy ( CBT):Patient was attentive and participatory in CBT programming this morning, and remained in good behavioral control. Patient expressed positive insights regarding relevant treatment interventions and goals.
--- NOTE | 2016-12-13 17:03 | PN ---
Subjective Date of Service: 12/13/16 Interval History: Patient seen and examined at bedside. Pt states that he continues to have significant edema in his lower body (legs, lower abdomen, lower back and testicles). He reports that this improves when he is able to lay down and get his feet and testicles elevated. Denies fever, chills, shortness of breath, chest discomfort, N/V/D. Pt states that he had some imaging done at [facility] that showed a "tear in the lining of his testicle", will try to obtain imaging reports from [facility]. Family History: Unchanged from Admission Social History: Unchanged from Admission Past Medical History: Unchanged from Admission Objective Active Medications: Bumetanide (Bumex Tab*) 4 mg PO DAILY ANALI Citalopram Hydrobromide (Celexa Tab*) 20 mg PO DAILY ANALI Enalapril Maleate (Vasotec Tab*) 5 mg PO DAILY ANALI Gabapentin (Neurontin Cap(*)) 800 mg PO BEDTIME ANALI Glimepiride (Glimepiride (Nf)) 4 mg PO BID ANALI Reason: Protocol Nicotine (Nicotine Inhaler*) 10 mg INH Q2H PRN Reason: CRAVING Omeprazole (Prilosec Cap*) 20 mg PO DAILY@0730 ANALI Oxycodone HCl (Roxycodone Tab*) 15 mg PO Q6H PRN Reason: PAIN Vital Signs 12/12/16 12/12/16 12/12/16 18:10 19:54 22:39 Pulse Rate Respiratory 20 16 15 Rate Blood Pressure (mmHg) 12/13/16 12/13/16 12/13/16 00:10 08:35 08:39 Pulse Rate 88 Respiratory 18 16 20 Rate Blood Pressure 130/80 (mmHg) 12/13/16 12/13/16 12/13/16 10:35 12:35 14:06 Pulse Rate Respiratory 16 16 16 Rate Blood Pressure (mmHg) 12/13/16 12/13/16 14:56 16:06 Pulse Rate Respiratory 16 16 Rate Blood Pressure (mmHg) Oxygen Devices in Use Now: None Appearance: NAD, sitting up on the side of the bed. Respiratory: Symmetrical Chest Expansion and Respiratory Effort, Clear to Auscultation Cardiovascular: NL Sounds; No Murmurs; No JVD, RRR Abdominal: NL Sounds; No Tenderness; No Distention Extremities: - - 2+ edema from LE to sacrum Neurological: Alert and Oriented x 3, NL Muscle Strength and Tone Nutrition: Taking PO's Result Diagrams: 12/13/16 06:45 12/13/16 06:45 Additional Lab and Data: Assess/Plan/Problems-Billing Assessment: Mr. Felton is a 51 yo male who presented to the emergency room with chronic anasarcous edema in the setting of uncontrolled DM and worsening renal function. He has a random urine protein/creatinine ratio of ~ 314168, highly suspicious for nephrotic syndrome when he presented to the emergency room and was advised to follow up with his PCP when he reported suicidal ideation. He was admitted to the behavioral services unit for suicidal ideation. - Patient Problems (1) Nephrotic syndrome Code(s): N04.9 - NEPHROTIC SYNDROME WITH UNSPECIFIED MORPHOLOGIC CHANGES SNOMED Code(s): 95549808 Comment: - Random urine protein/creatinine ratio ~ 79372 on presentation to ED, highly suspicious for nephrotic syndrome - Strict low sodium diet < 2 gm - Will check 24 hour urine for total protein - Will start ACEI - Will need to follow up with PCP outpatient (2) Suicidal ideation Code(s): R45.851 - SUICIDAL IDEATIONS SNOMED Code(s): 4675256 Comment: - Management per Psychiatry (3) Diabetes Code(s): E11.9 - TYPE 2 DIABETES MELLITUS WITHOUT COMPLICATIONS SNOMED Code(s) : 56364451 Comment: - Poorly controlled, HgA1C 15 in 09/2015 - Recheck HgA1C - Will start glucose checks with Lispro SS - Continue home Glimepiride (4) Full code status Code(s): Z78.9 - OTHER SPECIFIED HEALTH STATUS SNOMED Code(s): 725863236 Status and Disposition: Inpatient. Disposition per Psychiatry.
[2016-12-13] MEDS ORDERED: Dextrose 50% Syringe 50 ML* 25 GM/50 ML SYRINGE IV PUSH PRN (17:18)
[2016-12-13] MEDS: Gabapentin CAP(*) 400 MG PO SCH (20:58)
--- NOTE | 2016-12-13 21:28 | ED ---
I, Clarke Leung, scribed for Jonathon Bermudez MD on 12/12/16 at 0036 . Progress - Progress Note Progress Note: Patient signed out by Dr. Branham at shift change. Re-Evaluation - Re-Evaluation First Eval Re-Evaluation Time: 21:32 Change: Unchanged Comment: Discussed results of labs and potential treatment options with pt Course/Dx - Course Course Of Treatment: Patient signed out by Dr. Branham at shift change pending hospitalist consult. Patient care discussed with Dr. Phillips, who recommends MHE. - Diagnoses Provider Diagnoses: Nephrotic syndrome - Provider Notifications Discussed Care Of Patient With: Dr. Phillips (hospitalist) @ 0015: discharge disposition. Dr. Phillips (hospitalist) @ 0100: patient to have [facility]. Discharge - Discharge Plan Condition: Stable Disposition: OTHER Discharge Disposition Comment: Patient will be signed out pending [facility]. Referrals: [facility],Juan Saab [Primary Care Provider] - Additional Instructions: Strict salt restriction of less than 2 grams per day. Obtaining good control of your diabetes is extremely important to prevent worsening of kidney function. The documentation as recorded by the Madhu diaz Billy accurately reflects the service I personally performed and the decisions made by me, Jonathon Bermudez MD.
[2016-12-14] MEDS: Insulin LISPRO* 1 UNITS UNIT SUBCUT SCH ×2 (08:05→12:08)
[2016-12-14] MEDS: CMCS: Glimepiride (NF) 2 MG TAB PO SCH (08:06)
[2016-12-14] MEDS: Bumetanide TAB* 2 MG PO SCH (08:07)
[2016-12-14] MEDS: Omeprazole CAP* 20 MG PO SCH (08:07)
[2016-12-14] MEDS: Citalopram TAB* 20 MG PO SCH (08:07)
[2016-12-14] MEDS: oxyCODONE TAB* 5 MG TAB PO PRN (08:08)
[2016-12-14 08:56] VITALS: BP 158/93
[2016-12-14] MEDS ORDERED: Enalapril TAB* 5 MG PO SCH (09:00)
--- NOTE | 2016-12-14 14:16 | PN ---
Hospitalist Progress Note Patient seen prior to discharge from [facility] today. Pt states that he continues to have significant lower body edema. He has an appointment with his new PCP Dr. Daugherty tomorrow. He will need to have his creatinine followed in the outpatient setting after the initiation of an ACEI. He should be switched from Enalapril 5 mg to Lisinopril 10 mg at discharge. He should also be resumed on his Metformin and continue Glimepiride 4 mg BID. I recommend monitoring his creatinine and if it is above 1.5 to discontinue the metformin and switch to another agent. It has been discussed with the patient that he may benefit from a referral to Nephrology outpatient and that the edema will take awhile to resolve. He has been encouraged to keep his follow up appointment with Dr. Daugherty.
--- NOTE | 2016-12-14 16:20 | DS ---
DATE OF ADMISSION: 12/12/2016. DATE OF DISCHARGE: 12/14/2016. DISCHARGE DIAGNOSES: AXIS I: Adjustment disorder with depressed mood; cannabis use disorder. AXIS II: Deferred. AXIS III: Nephrotic syndrome, diabetes mellitus, gastroesophageal reflux disease, diabetic neuropathy, acute renal failure, acute anemia. AXIS IV: Severe, primary support and legal stressors. AXIS V: At the time of admission was 45 and at the time of discharge is 60. CONDITION AT THE TIME OF DISCHARGE: Stable. The patient is calm, cooperative. He is euthymic with a full affect. He is denying suicidal or homicidal ideations and he feels that he will continue to be safe on an ongoing basis after the time of discharge. We have invited his close friends, France and Tyree, who are also his neighbors in [place], [place] to participate in a family meeting and they indicate that the patient is back to his baseline. [place] has searched his trailer for firearms, finding none and they are in agreement with the discharge plan. Furthermore, the patient is agreeable with outpatient treatment in the community. The acute issue leading to this hospitalization was his pain and discomfort with his edema and related medical issues. This has been addressed by getting a hospitalist consult and we have changed his primary care provider and made recommendations for both medical and behavioral strategies to reduce the impact of edema on his functioning. MENTAL STATUS EXAM AT THE TIME OF DISCHARGE: The patient is a middle-aged, white male with shaggy blonde hair who is extremely obese showing signs of obvious edema in his pelvic area and lower extremities. He is fairly well- groomed. I see that he has a tongue ring and an eyebrow ring. He is calm, cooperative, easy to establish a rapport with with good eye contact. Speech has normal rate, tone, and volume. Mood is euthymic with a full affect. Thought process is linear and goal directed. Thought content is significant for his desire to be discharged from the hospital. He denies suicidal or homicidal ideations. He denies auditory or visual hallucinations. Insight and judgment appear to be fair given his willingness to follow-up with outpatient treatment. Cognitively, he is awake and alert with what would appear to be an average intellect. DISCHARGE INSTRUCTIONS TO THE PATIENT: A. Medications: He is taking Citalopram 20 mg p.o. daily, Bumex 4 mg daily, Gabapentin has been changed to 600 mg three times daily, Glimepiride 4 mg p.o. b.i.d., Protonix 40 mg p.o. daily, Oxycodone 15 mg every six hours as needed for pain. He has also been placed on Enalapril 5 mg p.o. daily. B. Diet: Diabetic diet. C. Activities: The patient is placed on a strict low sodium and diabetic diet. He was offered nicotine replacement therapy on an ongoing basis, however he is declining this, indicating his preference to continue smoking cigarettes for the time being. There are no studies pending at the time of discharge. D. Follow-up care: The patient will be seeing a new primary care provider, who is Dr. Ralph Daugherty, tomorrow at [facility]. That appointment is for December 15. In addition, he has an intake on SundayDecember 18 at 10:00 at [facility]. HOSPITAL COURSE - PART A: Reason for admission: The patient is a 51-year-old, , white male with a history of depression who arrived at [facility] seeking treatment for edema when it was made known that he had voiced suicidal statements to several friends and family members prior to presentation in the hospital. Apparently, the patient was not honest during his mental health evaluation and at that time denied any history of making suicidal statements; however, we were able to contact his father and stepmother in [place], as well as two local friends who live in [place] and are neighbors of his, all four of whom corroborated the fact that he had made some recent suicidal statements. The patient acknowledged feeling somewhat hopeless about his medical condition, stating "no doctor is able to relieve my symptoms, I am experiencing a lot of pain, I can't do the things that I used to do." He also made a statement to the effect "I have nothing to offer, just look at me." The patient does not know exactly what is causing his edema and this is part of the frustration. Part of the swelling is in his scrotum and that effects his ability to either have sex or urinate properly. He went to a urologist down at [place] who stated that he could not be treated. He feels that he has been told different things by different doctors, including on [place] [facility] [place] a clinician in the emergency room told him that he had kidney dysfunction. At the time of my initial meeting with him, he was minimizing his situation and he absolutely continued to deny suicidal ideations. Apparently, he has been on probation for the past ten years which will end in February 2017 and he was very much future oriented, stating that when his probation ends he would be able to move out of the state and move in with his daughter who resides in [place]. The patient states "I look at the bright side of things, even though this hurts I'm looking forward to being with my children. I feel like [facility] has been nothing but bad for me." I asked him about neurovegetative and associated symptoms of depression and he did endorse difficulty falling asleep because of his pain issues, but other than this he denied anhedonia, guilt, energy disturbance, concentration problems or decreased appetite. He steadfastly denied any suicidal ideations. One of his friends revealed in collateral information that he had access to a firearm; however, the patient denies this. He states that he used to have a shotgun, but it belonged to his neighbor and he actually returned the weapon several years ago. The patient admits to feeling down about his situation, but he denied any history of ashley or psychosis and feels that it was a mistake to be admitted to the Psychiatric Unit. HOSPITAL COURSE - PART B: Psychiatric treatment rendered: The patient was admitted to the [facility] where he was placed on q.30 minute checks for his own safety. We immediately resumed all of his medications , but we discovered through our pharmacy that we cannot safely prescribed Metformin due to the fact that he had renal insufficiency with a creatinine level of 1.57. We were able to get a Hospitalist consult and he had been seen by Dr. Nitesh Phillips in the emergency room with Medical follow-up provided by Barbara Todd NP. They determined that the case of his edema was likely the so called nephrotic syndrome. They recommended closer monitoring of his blood glucose and better glucose control, as well as restrictions of salt in his diet. They kept him on his diuretic medication, but also added a trial of Enalapril 5 mg p.o. daily to assist his kidney function. The patient was grateful for the diagnostic clarity in his situation. He did agree to eat a healthier diet with more whole foods, fruits and vegetables, with a reduction in both salt and sugar. He agreed that when he stops taking his medications, including his antidepressant and diabetic medications, the he does get irritable and he did admit to making statements about buying a bullet to solve his problems. He now states that this is a mistake and he can see why his friends and family were concerned about him. We were able to have a family meeting with his two next door neighbors, a woman named France and a man named Tyree, who had been present in the ER when he was first evaluated. They felt that he was doing better and back to his baseline and they felt good about the discharge plan. We were able to make follow-up appointments at a new primary care office here in [place], as well as with [facility] and the patient appears looking forward to moving on with his life. He states that he will remain in [place] for as long as it takes to get his medical situation improved and then move to [place] to be with his daughter and son. At this point, I have no qualms discharging him and we wish him the best for a safe and healthy future. [id number]/[facility] #: [id number] WARNER
== END 2016-12-14 14:15 | disposition home or self-care (01) | DRG 754 ==
LOC: ED 19:04 → BSU 12-12 10:51
PROVIDERS: ADMIT Psychiatry & Neurology Psychiatry; ATTEND Psychiatry & Neurology Psychiatry
PROC: GZHZZZZ Group Psychotherapy (ICD-10-PCS; principal; 2016-12-13)
DX: F43.21 Adjustment disorder with depressed mood (principal); E11.22 Type 2 diabetes mellitus with diabetic chronic kidney disease; N17.9 Acute kidney failure, unspecified; E11.40 Type 2 diabetes mellitus with diabetic neuropathy, unspecified; R45.851 Suicidal ideations; N18.3 Chronic kidney disease, stage 3 (moderate); N04.9 Nephrotic syndrome with unspecified morphologic changes; Z68.42 Body mass index [BMI] 45.0-49.9, adult; F12.90 Cannabis use, unspecified, uncomplicated; K21.9 Gastro-esophageal reflux disease without esophagitis; D64.9 Anemia, unspecified; Z63.9 Problem related to primary support group, unspecified; Z65.3 Problems related to other legal circumstances; E66.9 Obesity, unspecified; F17.210 Nicotine dependence, cigarettes, uncomplicated; E11.65 Type 2 diabetes mellitus with hyperglycemia; E78.5 Hyperlipidemia, unspecified; I25.10 Atherosclerotic heart disease of native coronary artery without angina pectoris; I25.2 Old myocardial infarction; M10.9 Gout, unspecified
CPT/HCPCS: 36415; 71020; 80048; 80053; 80307; 80320; 82570; 83036; 83605; 83880; 84156; 84439; 84443; 84484; 85025; 87040; 90853; 93005; 99222; 99231; 99238; A9270-GY; G0480; J1170; J2270